=== PATIENT | male | born 1985 | race Caucasian/White ===

== ENCOUNTER → 2023-03-20 | Emergency (ER) | payer OTHER ==
[~2023-03-20] MED LIST: DIPHENOX/ATROP SULF 1 TAB PO ONE; NA CHLORIDE 0.9% 1,000 ML ONE; ONDANSETRON 4 MG/2 ML VIAL ONE; SMZ./TMP. 800/160 MG TABLET ONE
[2023-03-20 16:24] LABS: Absolute Lymphocytes (CBC) 2.2 K/uL (0.7-4.9); Hematocrit 43.4 % (39.6-49.0); MCV 87.2 fL (80-100); MPV 9.4 fL (7.6-11.3); Platelets 202 thou/uL (152-406); RBC Red Blood Cell Count 4.98 M/uL (4.33-5.43)
[2023-03-20 16:33] LABS: SARS-CoV-2 Antigen Rapid Res Negative (Negative)
[2023-03-20 16:41] LABS: Albumin 3.9 g/dL (3.4-5.0); Bilirubin Total 0.4 mg/dL (0.2-1.0); Potassium 4.2 mEq/L (3.5-5.1); Protein, Total 7.6 g/dL (6.4-8.2)
--- NOTE | 2023-03-20 17:05 | EDPHYS ---
Physician Documentation [facility] Name: Ariel Kemp Age: 37 yrs Sex: Male : 1985 Arrival Date: 03/20/2023 Time: 16:00 Bed 20 Private MD: ED Physician Iglesia Benavides HPI: 03/20 16:49 This 37 yrs old Male presents to ER via [employer] with complaints of Nausea, rn Diarrhea. 16:49 The patient presents to the emergency department with nausea, vomiting, diarrhea. rn Onset: The symptoms/episode began/occurred yesterday. Possible causes: unknown. The symptoms are aggravated by nothing. The symptoms are alleviated by nothing. Severity of symptoms: At their worst the symptoms were moderate in the emergency department the symptoms are unchanged. The patient has not experienced similar symptoms in the past. Patient reports nausea/vomiting/diarrhea since yesterday. No blood. Diarrhea is green. No sick contacts. No fever. No hemoptysis.. Historical: - Allergies: 16:06 No Known Allergies; hb - Home Meds: 16:06 None [Active]; hb - PMHx: 16:06 None; hb - PSHx: 16:06 None; hb - Immunization history:: Adult Immunizations up to date. - Social history:: Smoking status: . - Family history:: not pertinent. - Hospitalizations: : No recent hospitalization is reported. ROS: 16:49 Constitutional: Negative for fever, chills, and weight loss, Cardiovascular: Negative rn for chest pain, palpitations, and edema, Respiratory: Negative for shortness of breath, cough, wheezing, and pleuritic chest pain, Abdomen/GI: Positive for nausea/vomiting/diarrhea MS/Extremity: Negative for injury and deformity, Skin: Negative for injury, rash, and discoloration, Neuro: Positive for generalized weakness Exam: 16:49 Constitutional: This is a well developed, well nourished patient who is awake, alert, rn and in no acute distress. Ambulatory to room without difficulty or assistance Head/Face: Normocephalic, atraumatic. Cardiovascular: Regular rate and rhythm. No pulse deficits. Respiratory: No increased work of breathing, no retractions or nasal flaring. Abdomen/GI: Soft, non-tender MS/ Extremity: Pulses equal, no cyanosis. Neurovascular intact. Full, normal range of motion. Equal circumference. Neuro: Awake and alert, GCS 15, oriented to person, place, time, and situation. Cranial nerves II-XII grossly intact. Motor strength 5/5 in all extremities. Sensory grossly intact. Cerebellar exam normal. Normal gait. Vital Signs: 16:04 BP 111 / 72; Pulse 80; Resp 16; Temp 97.9(O); Pulse Ox 100% on R/A; Weight 77.11 kg; hb Height 6 ft. 1 in. ; Pain 0/10; 16:04 Body Mass Index 22.43 (77.11 kg, 185.42 cm) hb 16:04 Pain Scale: Adult hb MDM: 16:02 Patient medically screened. rn 17:02 Differential diagnosis: gastritis, viral gastroenteritis, gastroenteritis. Data rn reviewed: vital signs, nurses notes, lab test result(s), and as a result, I will discharge patient. Counseling: I had a detailed discussion with the patient and/or guardian regarding the historical points, exam findings, and any diagnostic results supporting the discharge/admit diagnosis, lab results, the need for outpatient follow up, to return to the emergency department if symptoms worsen or persist or if there are any questions or concerns that arise at home. Response to treatment: the patient's symptoms have markedly improved after treatment, and as a result, I will discharge patient. Special discussion: I discussed with the patient/guardian in detail that at this point there is no indication for admission to the hospital. It is understood, however, that if the symptoms persist or worsen the patient needs to return immediately for re-evaluation. ED course: No acute findings and workup. Repeat abdominal exam is benign, no abdominal tenderness. Normal WBC. Normal lipase. Normal LFTs and renal function. Most likely viral syndrome given vomiting and diarrhea. No indication for emergent CT abdomen pelvis at this time. Will discharge with return precautions. 03/20 16: Order name: CBC with Diff; Complete Time: 16:42 rn 03/20 16:03 Order name: CMP; Complete Time: 16: rn 03/20 16:03 Order name: Lipase; Complete Time: 16:42 rn 03/20 16:03 Order name: SARS RAPID; Complete Time: 16: rn 03/20 16:03 Order name: Flu; Complete Time: 16: rn 03/20 16:03 Order name: IV Saline Lock; Complete Time: 16: rn 03/20 16:03 Order name: Labs collected and sent; Complete Time: 16:12 rn Administered Medications: 16:12 Drug: NS 0.9% IV 1000 ml IV at 1 bolus Per protocol; 1000 mL bolus Route: IV; Rate: 1 as6 bolus; Site: right forearm; 16:12 Drug: Ondansetron IVP 4 mg IVP once; over 2 minutes Route: IVP; Site: right forearm; as6 17:21 Drug: Diphenoxylate-Atropine PO 2 tabs PO once Route: PO; cp4 17:22 Follow up: Response: No adverse reaction cp4 17:21 Drug: Trimethoprim-Sulfamethoxazole PO (160 mg-800 mg (DS) 1 tablet PO once Route: PO; cp4 17:22 Follow up: Response: No adverse reaction cp4 Disposition Summary: 03/20/23 17:04 Discharge Ordered Notes: Location: Home rn Problem: new rn Symptoms: have improved rn Condition: Stable rn Diagnosis - Infectious gastroenteritis and colitis, unspecified rn Followup: rn - With: Private Physician - When: As needed - Reason: Recheck today's complaints, Re-evaluation by your physician Discharge Instructions: - Discharge Summary Sheet rn - Diarrhea, Adult rn - Nausea and Vomiting, Adult rn Forms: - Medication Reconciliation Form rn - Thank You Letter rn - Antibiotic analysis internship - Prescription Opioid Use rn - Patient Portal Instructions rn - Leadership Thank You Letter rn Prescriptions: - ondansetron 4 mg Oral Tablet,disintegrating - take 1 tablet ORAL route every 8 hours As needed; 12 tablet; Refills: 0, rn Product Selection Permitted - Bactrim DS 800-160 mg Oral Tablet - take 1 tablet ORAL route every 12 hours for 10 days; 20 tablet; Refills: 0, rn Product Selection Permitted Signatures: Dispatcher [employer] Iglesia Borjas MD MD rn Baxter, Heather RN Fernando Horan RN RN asMaggie Nugent cp4
--- NOTE | 2023-03-20 17:05 | ER ---
Nurse's Notes [facility] Name: Ariel Kemp Age: 37 yrs Sex: Male : 1985 Arrival Date: 03/20/2023 Time: 16:00 Bed 20 Private MD: Diagnosis: Infectious gastroenteritis and colitis, unspecified Presentation: 03/20 16:04 Chief complaint: N/D since last night, vomit x 2 today. Denies pain. Coronavirus hb screen: At this time, the client does not indicate any symptoms associated with coronavirus-19. Ebola Screen: No symptoms or risks identified at this time. Initial Sepsis Screen: Does the patient meet any 2 criteria? No. Patient's initial sepsis screen is negative. Does the patient have a suspected source of infection? No. Patient's initial sepsis screen is negative. Risk Assessment: Do you want to hurt yourself or someone else? Patient reports no desire to harm self or others. Onset of symptoms was March 19, 2023. 16:04 Method Of Arrival: [employer]: [place] [employer] hb 16:04 Acuity: LILIBETH 3 hb Historical: - Allergies: 16:06 No Known Allergies; hb - Home Meds: 16:06 None [Active]; hb - PMHx: 16:06 None; hb - PSHx: 16:06 None; hb - Immunization history:: Adult Immunizations up to date. - Social history:: Smoking status: . - Family history:: not pertinent. - Hospitalizations: : No recent hospitalization is reported. Screenin:06 [facility] ED Fall Risk Assessment (Adult) Score/Fall Risk Level 0 - 2 = Low Risk hb Oriented to surroundings, Maintained a safe environment, Educated pt \T\ family on fall prevention, incl call for assistance when getting out of bed. Abuse screen: Denies threats or abuse. Denies injuries from another. Nutritional screening: No deficits noted. Tuberculosis screening: No symptoms or risk factors identified. Assessment: 16:06 General: Appears in no apparent distress. Behavior is calm, cooperative. Pain: Denies hb pain. Neuro: Level of Consciousness is awake, alert, obeys commands, Oriented to person, place, time, situation. Cardiovascular: Patient's skin is warm and dry. Respiratory: Respiratory effort is even, unlabored, Respiratory pattern is regular, symmetrical. GI: Reports diarrhea, nausea. : No signs and/or symptoms were reported regarding the genitourinary system. EENT: No signs and/or symptoms were reported regarding the EENT system. Derm: Skin is pink, warm \T\ dry. Musculoskeletal: No signs and/or symptoms reported regarding the musculoskeletal system. Vital Signs: 16:04 BP 111 / 72; Pulse 80; Resp 16; Temp 97.9(O); Pulse Ox 100% on R/A; Weight 77.11 kg; hb Height 6 ft. 1 in. ; Pain 0/10; 16:04 Body Mass Index 22.43 (77.11 kg, 185.42 cm) hb 16:04 Pain Scale: Adult hb ED Course: 16:02 Patient arrived in ED. as6 16:02 Iglesia Benavides MD is Attending Physician. rn 16:06 Triage completed. hb 16:06 Arm band placed on. hb 16:06 Patient has correct armband on for positive identification. Provided Education on: hb tests, result times. 16:06 No provider procedures requiring assistance completed. hb 16:06 Maintain EMS IV. Dressing intact. Good blood return noted. Site clean \T\ dry. Gauge \T\ hb site: 22 RFA. 16:12 Flu Sent. as6 16:12 SARS RAPID Sent. as6 16:12 CBC with Diff Sent. as6 16:12 CMP Sent. as6 16:12 Lipase Sent. as6 17:13 Maggie Card is Primary Nurse. cp4 17:21 intact, bleeding controlled, No redness/swelling at site. Pressure dressing applied. cp4 Administered Medications: 16:12 Drug: NS 0.9% IV 1000 ml IV at 1 bolus Per protocol; 1000 mL bolus Route: IV; Rate: 1 as6 bolus; Site: right forearm; 16:12 Drug: Ondansetron IVP 4 mg IVP once; over 2 minutes Route: IVP; Site: right forearm; as6 17:21 Drug: Diphenoxylate-Atropine PO 2 tabs PO once Route: PO; cp4 17:22 Follow up: Response: No adverse reaction cp4 17:21 Drug: Trimethoprim-Sulfamethoxazole PO (160 mg-800 mg (DS) 1 tablet PO once Route: PO; cp4 17:22 Follow up: Response: No adverse reaction cp4 Medication: 16:06 VIS not applicable for this client. hb Outcome: 17:04 Discharge ordered by . truong 17:21 Discharged to [employer] cp4 17:21 Condition: stable 17:21 Discharge instructions given to [facility] 17:21 Instructed on discharge instructions, follow up and referral plans. medication usage, Demonstrated understanding of instructions, follow-up care, medications, 17:35 Patient left the ED. cp4 Signatures: Iglesia Benavides MD MD rn Baxter, Heather, RN RN Fernando Mckeon RN RN Maggie Edwards cp4
[2023-03-20 18:20] VITALS: BP 111/72; TEMP 97.9; O2SAT 100
== END ==
LOC: ER 16:00
DX: A09 Infectious gastroenteritis and colitis, unspecified (principal); Z11.52 Encounter for screening for COVID-19
CPT/HCPCS: 85025; 36415; 83690; 80053; 87804 ×2; 87811; J2405; J7030